=== PATIENT | female | born 1995 | race Hispanic/Latino ===

== ENCOUNTER 2017-05-06 19:25 | Emergency (ER) | payer OTHER ==
[~2017-05-06] VITALS: Ht 152.4 cm; Wt 74.5 kg
[~2017-05-06 19:25] MED LIST: AMOX-366 PO
[2017-05-06 19:33] VITALS: BP 101/65; PULSE 67; RESP 16; O2SAT 100
--- NOTE | 2017-05-06 19:49 | ED.REPORT ---
HPI-Back Pain Under 40 Date of Service May 06, 2017 ED Provider: Tyshawn Weiss DO Pt is a 22 y/o female who presents to the ED c/o intermittent back pain onset 4 days ago. She states her pain starts in her lumbar region then radiates up her spine. Pt states her symptoms are exacerbated with long periods of sitting or standing, and feel relief with icy-hot patches. Additional symptoms include chills and weakness in legs. She denies fever, numbness/tingling in legs, numbness/tingling in groin, bladder or bowel incontinence, dysuria, or fever. She also denies falling or a mechanism of injury. Pt usually gets lower back pain when she is on her period. Pt reports that didn't walk until she was 3 because her spine is wasn't "attached in lower back". She received physical therapy for her symptoms, but never had surgery. Nursing Notes Stated Complaint: BAD BACK PAIN X4 DAYS Chief Complaint: Back Pain or Injury Nursing Notes Reviewed: Yes Allergies: Coded Allergies: ceftriaxone (Verified Allergy, Unknown, 05/10/14) Scheduled Amoxicillin/Clav K 875-125 mg (Augmentin 875-125 mg) 1 Each Tablet 1 EACH PO BID General Time Seen by MD: 19:49 Chief Complaint Lumbar pain Hx Obtained From: Patient Arrived By: Walk-in Sudden in Onset?: No Onset Occurred: 4 days ago Caused by: Spontaneous/no mechanism Location: : Spinal lumbar area Quality: Painful Severity: Current: Moderate Severity: Maximum: Moderate Relieved by: Heat, Cold Recent Healthcare: No recent hospitalization, Recent doctor visit Similar Sx Previous: No Past Medical History Past Medical History Didn't walk until she was 3 years old 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 Physical Exam Initial Vital Signs Vital Signs (First) Date Time Temp Pulse Resp B/P Pulse Ox O2 Delivery O2 Flow Rate FiO2 05/06/17 19:33 37.1 67 16 101/65 100 Room Air Initial VS: Reviewed Head / Eyes: Atraumatic, Normocephalic Neck: Supple, Full range of motion Extremities: Vascular intact, Neuro intact, No swelling, No tenderness Skin: Warm, Dry, No cyanosis Psychiatric: Mood/affect normal, Behavior normal, Normal thought content General/Constitutional: Awake, Alert Back: Atraumatic, Full range of motion Midline lumbar spine tenderness to palpation Mild CVAT to percussion bilat Right-sided SI joint tenderness to palpation Neurologic: Oriented X3, Speech NL Respiratory / Chest: Atraumatic, Breath sounds NL, Breath sounds = bilat, No respiratory distress Cardiovascular: Heart rate NL, Regular rhythm, Heart sounds NL Interpretation & Diagnostics Lab Results Interpretation Test 05/06/17 21:24 Urine Color Yellow (YELLOW) Urine Appearance Clear (CLEAR,HAZY) Urine pH 7.0 (5.0-8.0) Urine Specific Fertile 1.020 (1.003-1.035) Urine Protein Negativemg/dL (NEG,TRACE) Urine Glucose (UA) Negativemg/dL (NEGATIVE) Urine Ketones Negativemg/dL (NEGATIVE) Urine Occult Blood Large (NEGATIVE) Urine Nitrite Negative (NEGATIVE) Urine Bilirubin Negative (NEGATIVE) Urine Urobilinogen 1.0mg/dL (NORMAL) Urine Leukocyte Esterase Negative (NEGATIVE) Urine RBC 3-10/hpf (0-2) Urine WBC 0-5/hpf (0-5) Urine Epithelial Cells Moderate/hpf (NONE-MOD) Urine Crystals None seen (NONE SEEN) Urine Bacteria Few/hpf (NONE-FEW) Urine Hyaline Casts None/lpf (NONE) Urine Granular Casts None seen (NONE SEEN) Urine Waxy Casts None seen (NONE SEEN) Urine Red Blood Cell Casts None seen (NONE SEEN) Urine White Blood Cell Casts None seen (NONE SEEN) Urine Mucus None seen (None Seen) Urine Trichomonas None seen (NONE SEEN) Urine Yeast None (NONE SEEN) Urinalysis Comment None Urine Culture Reflexed Not indicated X-Ray Interpretation Xray Interpretation: Lumbar Spine X-Ray: IMPRESSION: No acute fractures or dislocations. Dictated by: Isaac Corea M.D. on 05/06/2017 at 20:34 Approved by: Isaac Corea M.D. on 05/06/2017 at 20:35 Interpretation / Wet Read by: Interpret - Radiologist Re-Eval/Medical Decision Med Decision/Clinical Course I am uncertain what she is referring to as she discusses her past medical history but in light of that and her back pain I elected to perform a lumbar xray which returned normal. She was observed walking to the bathroom and does not appear to be in significant pain and was found cuddling with her boyfriend in the hospital bed a 2 different rechecks, not appearing to be in any significant pain. Pt is just finishing her period. UA showed small blood but pt had mild bilat CVAT and did not have the appearance of someone with renal stone so I elected not to perform CT KUB. No signs of infection. Pain improved with toradol. Source of Hx: Old records Re-Evaluation/Progress #1: Time of Eval: 20:12 Re-Evaluation/Progress Note: Patient rechecked. Patient's boyfriend states that she gets lower back pain with her period usually. Re-Evaluation/Progress #2: Time of Eval: 22:04 Patient Status: Condition improved Re-Evaluation/Progress Note: Patient rechecked. Discussed plan for discharge. Patient understands and agrees with plan. F/U instructions and RTER warnings given. All questions addressed at this time. Counseled Regarding: Diagnosis, Lab results, Need for follow-up, When/why to return to ED Discharge & Departure Impression: Primary Impression: Low back pain Chronicity: acute Back pain laterality: midline Sciatica presence: without sciatica Qualified Code: M54.5 - Low back pain Disposition: Home All VS Reviewed: Yes Condition: Stable Additional Instructions: Thank you for entrusting us with your medical care today. Your emergency department evaluation today including examination, lab work, and back x-ray are reassuring. There is no apparent dangerous cause for your symptoms today. I did not appreciate a kidney infection. Your urine had a little bit of blood in it, but it might be related to your period. You can alternate Tylenol and ibuprofen to help with pain. Please call Dr. Alcantar tomorrow in order to schedule a follow-up appointment for a recheck. Please return to the emergency department for any new or worsening conditions including any worsening pain in your back, bladder or bowel incontinence, or worsening weakness. Referrals: Nguyen Alcantar DO Scribe Attestation Portions of this note were transcribed by Emma Polanco. I, Dr. Edge, personally performed the history, physical exam and medical decision-making; I reviewed and confirmed the accuracy of the information in the transcribed note. copies to: Nguyen Alcantar Gary R DO May 06, 2017 19:49 Emma Polanco May 06, 2017 20:04
--- NOTE | 2017-05-06 20:37 | DRSVH ---
PROCEDURE: X-RAY LUMBAR SPINE, 2 OR 3 VIEW INDICATIONS: low back pain, pt reports abn spine TECHNIQUE: 3 views of the lumbar spine were acquired. COMPARISON: None. FINDINGS: Bones: 5 [id number] vertebrae are present. There is normal bony alignment. No vertebral body compression fractures. No suspicious bony lesions. Soft tissues: Overlying bowel gas pattern is normal. No suspicious soft tissue calcifications. IMPRESSION: No acute fractures or dislocations. Dictated by: Isaac Corea M.D. on 05/06/2017 at 20:34 Approved by: Isaac Corea M.D. on 05/06/2017 at 20:35
[2017-05-06 21:31] LABS: APPEARANCE,URINE CLEAR (CLEAR,HAZY); COLOR,URINE YELLOW (YELLOW); OCCULT BLOOD,URINE LARGE (NEGATIVE)
[2017-05-06 22:48] VITALS: BP 100/61; PULSE 71; RESP 16; O2SAT 99
== END 2017-05-06 22:49 | disposition home or self-care (01) ==
LOC: SED 19:25
DX: M54.5 Low back pain (principal); Z88.1 Allergy status to other antibiotic agents
CPT/HCPCS: 72100; 81000; 81025; 96372; 99284; J1885